=== PATIENT | male | born 1970 | race Caucasian/White ===

== ENCOUNTER 2019-11-05 20:21 | Day surgery (SDC) | payer BC ==
[~2019-11-05 20:21] MED LIST: Dexamethasone 20 MG/5 ML VIAL ONE; EPHEDRINE 25 MG/5 ML SYRINGE ONE; Lidocaine 1% PF 5 ML VIAL ONE; Ondansetron PF 4 MG/2 ML Vial ONE; PROPOFOL 200 MG/20 ML VIAL ONE; Rocuronium Bromide 10 MG/ML (10ML VIAL) ONE; Succinylcholine Chloride 20 MG/ML 10 ml SYRINGE FS ONE
[2019-11-05] MEDS ORDERED: Fentanyl 100 MCG/2 ML VIAL ONE ×2 (20:42→22:03)
[2019-11-05] MEDS ORDERED: EPINEPHrine 1 MG/ML AMP ONE (20:51)
[2019-11-05] MEDS ORDERED: Bupivacaine PF 0.5% 30 ML VIAL ONE (20:51)
[2019-11-05] MEDS ORDERED: SUGAMMADEX SODIUM 500 MG/5 ML VIAL ONE (21:32)
[2019-11-05] MEDS ORDERED: Meperidine HCl/PF 25 MG/ML VIAL ONE (21:58)
[2019-11-05] MEDS ORDERED: HYDROcodone/Acetaminophen 10/325 mg Tablet ONE (22:24)
[2019-11-05] MEDS ORDERED: HYDROcodone/Acetaminophen 5/325 mg Tablet ONE (22:25)
--- NOTE | 2019-11-06 02:31 | OP ---
DATE OF PROCEDURE: 11/05/2019 PREOPERATIVE DIAGNOSIS: Acute appendicitis. POSTOPERATIVE DIAGNOSIS: Acute appendicitis. PROCEDURE PERFORMED: Laparoscopic appendectomy. ANESTHESIA: General. ESTIMATED BLOOD LOSS: Minimal. SPECIMENS: Appendix. COMPLICATIONS: None. COUNTS: Sponge and needle count were correct x2. INDICATIONS FOR PROCEDURE: The patient is a 49-year-old gentleman, who has a history, clinical exam as well as radiographic evidence of appendicitis. He was transferred from an outside emergency room for acute appendicitis. FINDINGS: Early tip appendicitis. CONDUCT OF THE OPERATION: After written preoperative informed consent, the patient was taken to the operating room, placed in the supine position, and intubated. The abdomen was prepared and draped in a sterile fashion, and a time-out was performed. A direct optical entry technique was used in the right upper quadrant. Pneumoperitoneum was established. The underlying viscera were inspected, and there was no damage noted. Gentle surveillance of the abdomen revealed few adhesions under the midline from prior surgery. The left lower quadrant was clear. A 5-mm trocar was placed in the left lower quadrant. Few of the loose adhesions of the omentum were taken down underneath the midline, so that the area around the umbilicus was clear. A 12-mm trocar was inserted in an infraumbilical location. The appendix was identified and was consistent with early appendicitis within the distal aspect/tip of the appendix. It was grasped and retracted anteriorly. A window was made through the mesoappendix. The appendix was stapled off the colon. The mesoappendix was taken down with energy. The appendix was placed within an EndoCatch bag and removed via the umbilicus. The right lower quadrant was surveilled, and there was no bleeding noted. The staple lines were intact. The infraumbilical trocar was removed, and the fascia was closed with a 0 Vicryl suture utilizing a suture passer. The pneumoperitoneum was released. The two remaining trocars were removed. The skin was closed with Monocryl and surgical skin glue. The patient was extubated and taken to postanesthesia care area in good condition having tolerated procedure well. Job ID: [id number]
== END 2019-11-05 22:45 | disposition home or self-care (01) ==
LOC: SDC 20:21
PROVIDERS: ATTEND Surgery
PROC: 0DTJ4ZZ Resection of Appendix, Percutaneous Endoscopic Approach (ICD-10-PCS; principal; 2019-11-05)
DX: K35.33 Acute appendicitis with perforation, localized peritonitis, and gangrene, with abscess (principal); I10 Essential (primary) hypertension; Z88.5 Allergy status to narcotic agent
CPT/HCPCS: 88304; J0171; J1100; J2001; J2175; J2405; J2704; J3010; S0020